=== PATIENT | male | born 1965 | race Caucasian/White ===

== ENCOUNTER → 2023-03-12 | Outpatient (CLI) | payer OTHER ==
--- NOTE | 2023-03-12 15:56 | XR ---
EXAMINATION TYPE: XR Hip RT and AP Pelvis DATE OF EXAM: 03/12/2023 3:49 PM CLINICAL INDICATION:Male, 57 years old with history of S40.011A S70.01XA; PHH COMPARISON: None. TECHNIQUE: XR Hip RT and AP Pelvis; hip was examined in the frontal and lateral projections and a AP pelvis. FINDINGS: No evidence for acute process, joint dislocation or significant soft tissue swelling. Osteo phyte formation of the superior acetabulum of the hip. IMPRESSION: 1. No evidence for acute process. 2. Mild bilateral hip osteoarthrosis.
--- NOTE | 2023-03-12 15:59 | XR ---
EXAMINATION TYPE: XR shoulder complete RT DATE OF EXAM: 03/12/2023 3:49 PM CLINICAL INDICATION:Male, 57 years old with history of S40.011A S70.01XA; H COMPARISON: None TECHNIQUE: XR shoulder complete RT; shoulder was examined in AP, internally rotated and scapular Y p rojections. FINDINGS: No evidence of acute osseous pathology, joint dislocation, or soft tissue swelling. The remaining por tions of the visualized chest are unremarkable. Mild acromioclavicular joint osteoarthrosis with hype rtrophic change. IMPRESSION: 1. No acute osseous pathology. 2. Mild right shoulder osteoarthrosis most pronounced in the common clavicular joint.
== END | disposition home or self-care (01) ==
LOC: RADXRMAIN 15:20
PROVIDERS: ATTEND Emergency Medicine
DX: S40.011A Contusion of right shoulder, initial encounter (principal); S70.01XA Contusion of right hip, initial encounter; M16.0 Bilateral primary osteoarthritis of hip; M19.011 Primary osteoarthritis, right shoulder
CPT/HCPCS: 73502

== ENCOUNTER → 2023-03-29 | Outpatient (CLI) | payer OTHER ==
--- NOTE | 2023-03-29 11:29 | MR ---
EXAMINATION TYPE: MR shoulder RT wo con DATE OF EXAM: 03/29/2023 COMPARISON: Right shoulder x-ray March 12, 2023 HISTORY: Right shoulder pain with difficulty raising arm overhead, decreased ROM, injury. TECHNIQUE: Multiplanar, multisequence imaging of the right shoulder is performed without contrast. FINDINGS: Rotator Cuff: Full-thickness retracted tear of the anterior three quarters of of the right supraspina tus tendon retracted to level of the acromion coronal image 16. Few posterior fibers remain intact. I nfraspinatus tendon intact with some mild increased signal and surrounding fluid. Increased signal an d thickening of the supraspinatus tendon with surrounding fluid. Rotator cuff muscle bulk is preserve d. Acromioclavicular Joint: Moderate narrowing and capsular hypertrophy. Mild spurring. Mass effect on t he supraspinatus tendon near the myotendinous junction is noted. Glenohumeral Joint: Moderate-sized joint effusion. No significant spurring. Labrum: The labrum appears grossly intact given limitation of non-arthrogram study. Biceps Tendon: The long head of biceps is in normal location within bicipital groove. Bone marrow signal: No focal abnormal marrow signal is appreciated. Other: No additional significant abnormality is appreciated. IMPRESSION: 1. Significant full-thickness retracted tear of the majority of the supraspinatus tendon. 2. Some tendinosis of the infraspinatus and subscapularis tendons. 3. AC joint arthropathy with underlying impingement. 4. Moderate size glenohumeral joint effusion.
== END | disposition home or self-care (01) ==
LOC: RADMRIMAIN 10:09
PROVIDERS: ATTEND Emergency Medicine
DX: S40.011D Contusion of right shoulder, subsequent encounter (principal); S70.01XD Contusion of right hip, subsequent encounter; S46.011A Strain of muscle(s) and tendon(s) of the rotator cuff of right shoulder, initial encounter; M19.011 Primary osteoarthritis, right shoulder; M67.813 Other specified disorders of tendon, right shoulder; M25.811 Other specified joint disorders, right shoulder; X58.XXXD Exposure to other specified factors, subsequent encounter